=== PATIENT | male | born 1965 | race Caucasian/White ===

== ENCOUNTER 2017-07-15 23:16 | Emergency (ER) | payer SELFPAY ==
[~2017-07-15] VITALS: Ht 177.8 cm; Wt 108.9 kg
[~2017-07-15 23:16] MED LIST: ACET325 PO; ALBIPROI; ALBU.083IS; ALBU90OI; ALBU90OI61 INH; Bactrim Ds Tab1 EACH PO; CIPR500 PO; CIPRO500 MG PO; Cipro500 MG PO; Colace100 MG PO; DIPATR PO; DOCU100 PO; ESOM20; Flagyl500 MG PO; HYDMOR4 PO; HYDR1TAB94; IBUP800; Keflex500 MG PO; Naprosyn500 MG PO; Norco 10-325 T1 EACH PO; PROM25 PO; Percocet 5-3251 EACH PO; RXHYDMOR2 PO; TAMS.4ER PO; Zofran8 MG PO
[2017-07-16 00:19] LABS: BASOPHILS ABSOLUTE AUTO 0.04 K/mm3 (0.00-0.23); BASOPHILS PERCENT AUTO 0 % (0-2); EOSINOPHILS ABSOLUTE AUTO 0.11 K/mm3 (0.00-0.68); EOSINOPHILS PERCENT AUTO 1 % (0-6); Hematocrit 47.3 % (37.0-53.0); Hemoglobin 16.2 g/dL (13.5-17.5); IMMATURE GRAN ABSOLUTE AUTO 0.04 K/mm3 (0.00-0.10); IMMATURE GRAN PERCENT AUTO 0 % (0-1); LYMPHOCYTES ABSOLUTE AUTO 0.83 K/mm3 (0.84-5.20); LYMPHOCYTES PERCENT AUTO 9 % (21-46); MONOCYTES ABSOLUTE AUTO 1.33 K/mm3 (0.16-1.47); MONOCYTES PERCENT AUTO 14 % (4-13); Mean Corpuscular HGB Conc 34.2 g/dL (31.5-36.5); Mean Corpuscular Volume 91 fL (80-100); NEUTROPHILS PERCENT AUTO 76 % (41-73); Platelet Count 225 K/mm3 (150-400); RDW Coefficient Variation 12.9 % (11.7-14.2); RDW Standard Deviation 42.7 fL (35.1-46.3); Red Blood Cell Count 5.22 M/mm3 (4.30-5.90); White Blood Cell Count 9.75 K/mm3 (4.00-11.30)
[2017-07-16 00:24] LABS: Influenza A Negative (NEGATIVE); Influenza B Positive (NEGATIVE)
[2017-07-16] MEDS ORDERED: Tamiflu75 MG PO (00:49)
[2017-07-16 01:36] LABS: Alanine Aminotransfer (ALT/SGP 33 U/L (12-78); Albumin, Blood 3.5 g/dL (3.4-5.0); Alk Phos 63 U/L (50-136); Anion Gap 9 mmol/L (6-16); Aspartate Aminotrans (AST/SGOT 22 U/L (12-37); Bilirubin, Total 0.5 mg/dL (0.1-1.0); Blood Urea Nitrogen 9 mg/dL (8-24); CO2, Blood 22 mmol/L (21-32); Calcium, Blood 7.9 mg/dL (8.5-10.1); Chloride, Blood 107 mmol/L (98-108); Creatinine, Blood 0.75 mg/dL (0.60-1.20); Globulin, Blood 3.4 g/dL (2.2-4.0); Glomerular Filtration Rate >60 (60-); Glucose, Blood 99 mg/dL (70-99); Potassium, Blood 3.5 mmol/L (3.5-5.5); Sodium, Blood 138 mmol/L (136-145); Total Protein, Blood 6.9 g/dL (6.4-8.2); Troponin I <0.015 ng/mL (0.000-0.040)
[2017-07-16] MEDS ORDERED: Prednisone20 MG PO (01:40)
[2017-07-16] MEDS ORDERED: Ativan1 MG PO (01:40)
== END 2017-07-16 01:57 | disposition home or self-care (01) ==
LOC: ER 23:16
PROVIDERS: Physician Assistant
DX: J10.1 Influenza due to other identified influenza virus with other respiratory manifestations (principal); J45.909 Unspecified asthma, uncomplicated; I10 Essential (primary) hypertension; F17.210 Nicotine dependence, cigarettes, uncomplicated; Z88.5 Allergy status to narcotic agent
CPT/HCPCS: 36415; 71046; 80053; 84484; 85025; 87804; 93005; 93010; 94640; 96361; 96374; 96375; 99284; J1885; J2930; J7030

== ENCOUNTER 2017-12-13 08:21 | Emergency (ER) | payer OTHER ==
[~2017-12-13] VITALS: Ht 175.3 cm; Wt 115.7 kg
[~2017-12-13 08:21] MED LIST changes: +Ativan1 MG PO; +Prednisone20 MG PO; +Tamiflu75 MG PO
[2017-12-13] MEDS ORDERED: Prinivil10 MG PO (08:56)
[2017-12-13 09:20] LABS: BASOPHILS ABSOLUTE AUTO 0.07 K/mm3 (0.00-0.23); BASOPHILS PERCENT AUTO 1 % (0-2); EOSINOPHILS ABSOLUTE AUTO 0.41 K/mm3 (0.00-0.68); EOSINOPHILS PERCENT AUTO 5 % (0-6); Hemoglobin 15.8 g/dL (13.5-17.5); IMMATURE GRAN ABSOLUTE AUTO 0.04 K/mm3 (0.00-0.10); IMMATURE GRAN PERCENT AUTO 0 % (0-1); LYMPHOCYTES ABSOLUTE AUTO 2.15 K/mm3 (0.84-5.20); LYMPHOCYTES PERCENT AUTO 23 % (21-46); MONOCYTES ABSOLUTE AUTO 0.85 K/mm3 (0.16-1.47); MONOCYTES PERCENT AUTO 9 % (4-13); Mean Corpuscular HGB 30.7 pg (26.0-34.0); Mean Corpuscular HGB Conc 33.6 g/dL (31.5-36.5); Mean Corpuscular Volume 91 fL (80-100); Mean Platelet Volume 9.6 fL (9.1-12.4); NEUTROPHILS ABSOLUTE AUTO 5.65 K/mm3 (1.96-9.15); NEUTROPHILS PERCENT AUTO 62 % (41-73); Platelet Count 227 K/mm3 (150-400); RDW Coefficient Variation 12.6 % (11.7-14.2); RDW Standard Deviation 42.5 fL (35.1-46.3); Red Blood Cell Count 5.14 M/mm3 (4.30-5.90); White Blood Cell Count 9.17 K/mm3 (4.00-11.30)
[2017-12-13 09:40] LABS: Alanine Aminotransfer (ALT/SGP 36 U/L (12-78); Albumin, Blood 3.8 g/dL (3.4-5.0); Albumin/Globulin Ratio 1.1 (0.8-1.8); Alk Phos 76 U/L (50-136); Anion Gap 8 mmol/L (6-16); Aspartate Aminotrans (AST/SGOT 18 U/L (12-37); Bilirubin, Total 0.5 mg/dL (0.1-1.0); Blood Urea Nitrogen 12 mg/dL (8-24); Bun/Creatinine Ratio 16.6 (12.0-20.0); CO2, Blood 24 mmol/L (21-32); Calcium, Blood 8.4 mg/dL (8.5-10.1); Chloride, Blood 109 mmol/L (98-108); Creatinine, Blood 0.72 mg/dL (0.60-1.20); Globulin, Blood 3.4 g/dL (2.2-4.0); Glomerular Filtration Rate >60 (60-); Glucose, Blood 104 mg/dL (70-99); Potassium, Blood 4.1 mmol/L (3.5-5.5); Sodium, Blood 141 mmol/L (136-145); Total Protein, Blood 7.2 g/dL (6.4-8.2)
[2017-12-13] MEDS ORDERED: Percocet 10-321 EACH PO (11:20)
== END 2017-12-13 11:55 | disposition home or self-care (01) ==
LOC: ER 08:21
PROVIDERS: Emergency Medicine
DX: K40.90 Unilateral inguinal hernia, without obstruction or gangrene, not specified as recurrent (principal); I10 Essential (primary) hypertension; J45.909 Unspecified asthma, uncomplicated; F17.210 Nicotine dependence, cigarettes, uncomplicated; F17.220 Nicotine dependence, chewing tobacco, uncomplicated; Z88.5 Allergy status to narcotic agent; Z79.899 Other long term (current) drug therapy
CPT/HCPCS: 36415; 74177; 76870; 80053; 81000; 83690; 85025; 96361; 96374; 96375; 96376; 99284-25; J2405; J3010; J7030; Q9967

== ENCOUNTER 2018-04-15 12:54 | Inpatient (IN) | payer OTHER ==
[~2018-04-15] VITALS: Ht 177.8 cm; Wt 111.1 kg
[~2018-04-15 12:54] MED LIST changes: +Percocet 10-321 EACH PO; +Prinivil10 MG PO
[2018-04-15] MEDS ORDERED: LOSA50 PO (13:47)
[2018-04-15 13:50] LABS: BASOPHILS ABSOLUTE AUTO 0.09 K/mm3 (0.00-0.23); BASOPHILS PERCENT AUTO 0 % (0-2); EOSINOPHILS ABSOLUTE AUTO 0.01 K/mm3 (0.00-0.68); EOSINOPHILS PERCENT AUTO 0 % (0-6); Hematocrit 52.3 % (37.0-53.0); Hemoglobin 17.2 g/dL (13.5-17.5); IMMATURE GRAN ABSOLUTE AUTO 0.18 K/mm3 (0.00-0.10); IMMATURE GRAN PERCENT AUTO 1 % (0-1); LYMPHOCYTES ABSOLUTE AUTO 0.58 K/mm3 (0.84-5.20); LYMPHOCYTES PERCENT AUTO 3 % (21-46); MONOCYTES ABSOLUTE AUTO 0.74 K/mm3 (0.16-1.47); MONOCYTES PERCENT AUTO 3 % (4-13); Mean Corpuscular HGB 30.4 pg (26.0-34.0); Mean Corpuscular HGB Conc 32.9 g/dL (31.5-36.5); Mean Corpuscular Volume 92 fL (80-100); Mean Platelet Volume 9.6 fL (9.1-12.4); NEUTROPHILS PERCENT AUTO 93 % (41-73); Platelet Count 236 K/mm3 (150-400); RDW Coefficient Variation 12.5 % (11.7-14.2); RDW Standard Deviation 42.9 fL (35.1-46.3); Red Blood Cell Count 5.66 M/mm3 (4.30-5.90)
[2018-04-15 13:57] LABS: PCO2 Arterial 31.6 mmHg (35-45); PO2 Arterial 58.8 mmHg (80-100); pH Blood Arterial 7.47 (7.35-7.45)
[2018-04-15 14:13] LABS: Alanine Aminotransfer (ALT/SGP 27 U/L (12-78); Albumin, Blood 4.2 g/dL (3.4-5.0); Albumin/Globulin Ratio 0.9 (0.8-1.8); Alk Phos 90 U/L (50-136); Anion Gap 10 mmol/L (6-16); Aspartate Aminotrans (AST/SGOT 10 U/L (12-37); Bilirubin, Total 0.9 mg/dL (0.1-1.0); Blood Urea Nitrogen 11 mg/dL (8-24); Bun/Creatinine Ratio 14.9 (12.0-20.0); CO2, Blood 21 mmol/L (21-32); Calcium, Blood 9.5 mg/dL (8.5-10.1); Chloride, Blood 107 mmol/L (98-108); Creatinine, Blood 0.74 mg/dL (0.60-1.20); Globulin, Blood 4.6 g/dL (2.2-4.0); Glomerular Filtration Rate >60 (60-); Glucose, Blood 131 mg/dL (70-99); Potassium, Blood 3.8 mmol/L (3.5-5.5); Sodium, Blood 138 mmol/L (136-145); Total Protein, Blood 8.8 g/dL (6.4-8.2); Troponin I <0.015 ng/mL (0.000-0.040)
[2018-04-15] MEDS ORDERED: TRELEGY ELLIPT1 EACH INH (14:19)
--- NOTE | 2018-04-15 19:21 | NUR ---
SHIFT SUMMARY: Pt arrived to room PCU 15 from ER via stretcher. Pt A/O x 4. Oriented to room, unit, call light and care rounding. Pt denies questions. VSS. LS diminshed with wheezing throughout. Pt placed on 2L N/C for biox 90% on RA. BIox increased to 93%. BIpap at bedside. Pt states that he thinks he will want to use the Bipap tonight. Report was given to night RN and care tansfered.
[2018-04-15 20:31] LABS: Adenovirus Not Detected (NOT DETECT); Bordetella pertussis Not Detected (NOT DETECT); Chlamydophila pneumoniae Not Detected (NOT DETECT); Coronavirus 229E Not Detected (NOT DETECT); Coronavirus HKU1 Not Detected (NOT DETECT); Coronavirus NL63 Not Detected (NOT DETECT); Coronavirus OC43 Not Detected (NOT DETECT); Human Metapneumovirus Not Detected (NOT DETECT); Influenza A/2009-H1 Not Detected (NOT DETECT); Influenza A/H1 Not Detected (NOT DETECT); Influenza A/H3 Not Detected (NOT DETECT); Influenza B Not Detected (NOT DETECT); Mycoplasma pneumoniae Not Detected (NOT DETECT); Parainfluenza Virus 1 Not Detected (NOT DETECT); Parainfluenza Virus 2 Not Detected (NOT DETECT); Parainfluenza Virus 3 Not Detected (NOT DETECT); Parainfluenza Virus 4 Not Detected (NOT DETECT); Respiratory Syncytial Virus Not Detected (NOT DETECT)
[2018-04-15 21:53] LABS: Human Rhinovirus/Enterovirus Detected (NOT DETECT); Influenza A Not Detected (NOT DETECT)
[2018-04-16 03:53] LABS: Hematocrit 45.9 % (37.0-53.0); Hemoglobin 15.2 g/dL (13.5-17.5); Mean Corpuscular HGB 30.7 pg (26.0-34.0); Mean Corpuscular HGB Conc 33.1 g/dL (31.5-36.5); Mean Corpuscular Volume 93 fL (80-100); Mean Platelet Volume 9.9 fL (9.1-12.4); Platelet Count 200 K/mm3 (150-400); RDW Coefficient Variation 12.8 % (11.7-14.2); RDW Standard Deviation 43.6 fL (35.1-46.3); Red Blood Cell Count 4.95 M/mm3 (4.30-5.90); White Blood Cell Count 21.13 K/mm3 (4.00-11.30)
[2018-04-16 04:09] LABS: Anion Gap 5 mmol/L (6-16); Blood Urea Nitrogen 12 mg/dL (8-24); Bun/Creatinine Ratio 18.2 (12.0-20.0); CO2, Blood 24 mmol/L (21-32); Calcium, Blood 8.4 mg/dL (8.5-10.1); Chloride, Blood 114 mmol/L (98-108); Creatinine, Blood 0.66 mg/dL (0.60-1.20); Glomerular Filtration Rate >60 (60-); Glucose, Blood 154 mg/dL (70-99); Potassium, Blood 4.3 mmol/L (3.5-5.5); Sodium, Blood 143 mmol/L (136-145)
--- NOTE | 2018-04-16 07:34 | NUR ---
SHIFT SUMMARY PATIENT PLEASENT AND COOPERATIVE THROUGHOUT THE NIGHT. PATIENT APPEARED TO ENJOY JOKING AND TALKING WITH STAFF. PATIENT APPEARED TO SLEEP WELL THROUGHOUT THE NIGHT. STAYED THE NIGHT AT THE BEDSIDE. PATIENT MEDICATED FOR PAIN PER EMAR. VITAL SIGNS CHARTED. REPORT GIVEN TO ONCOMING RN.
--- NOTE | 2018-04-16 15:01 | NUR ---
1300 The pt expresses a lot of frustration about several things: His recent poor health has caused him financial and emotional distress. His work in the [employer] requires a lot of walking and he finds himself dyspneic. He is also having pain in his left lower back, which he states is from coughing so much. He is having "heart burn" as well. He is frustrated also with needing to wear the oxygen, but is compliant with Bipap and feels that the bipap really helps him. His SPO2 was 88-90% at rest, with conversation. He tells me that he went into the bathroom for a BM this morning without the oxygen on, and that afterwards he felt really short of breath. He is asking if he can get up and walk around in the hallway today. I suggested keeping the oxygen on while he is up to the bathroom, and taking only short walks around the room, with oxygen on, for today, and gradually increasing his activity tomorrow.
[2018-04-17 04:13] LABS: BASOPHILS ABSOLUTE AUTO 0.04 K/mm3 (0.00-0.23); BASOPHILS PERCENT AUTO 0 % (0-2); Hematocrit 43.9 % (37.0-53.0); Hemoglobin 14.3 g/dL (13.5-17.5); LYMPHOCYTES ABSOLUTE AUTO 1.15 K/mm3 (0.84-5.20); LYMPHOCYTES PERCENT AUTO 5 % (21-46); MONOCYTES ABSOLUTE AUTO 0.92 K/mm3 (0.16-1.47); MONOCYTES PERCENT AUTO 4 % (4-13); Mean Corpuscular HGB 30.3 pg (26.0-34.0); Mean Corpuscular HGB Conc 32.6 g/dL (31.5-36.5); Mean Corpuscular Volume 93 fL (80-100); Mean Platelet Volume 10.3 fL (9.1-12.4); Platelet Count 219 K/mm3 (150-400); RDW Coefficient Variation 12.8 % (11.7-14.2); RDW Standard Deviation 43.8 fL (35.1-46.3); Red Blood Cell Count 4.72 M/mm3 (4.30-5.90); White Blood Cell Count 23.36 K/mm3 (4.00-11.30)
[2018-04-17 04:14] LABS: EOSINOPHILS ABSOLUTE AUTO 0.11 K/mm3 (0.00-0.68); EOSINOPHILS PERCENT AUTO 1 % (0-6); IMMATURE GRAN ABSOLUTE AUTO 0.24 K/mm3 (0.00-0.10); IMMATURE GRAN PERCENT AUTO 1 % (0-1); NEUTROPHILS PERCENT AUTO 90 % (41-73)
[2018-04-17 04:29] LABS: Anion Gap 7 mmol/L (6-16); Blood Urea Nitrogen 18 mg/dL (8-24); Bun/Creatinine Ratio 27.4 (12.0-20.0); CO2, Blood 23 mmol/L (21-32); Calcium, Blood 8.5 mg/dL (8.5-10.1); Chloride, Blood 112 mmol/L (98-108); Creatinine, Blood 0.66 mg/dL (0.60-1.20); Glomerular Filtration Rate >60 (60-); Glucose, Blood 147 mg/dL (70-99); Potassium, Blood 3.9 mmol/L (3.5-5.5); Sodium, Blood 142 mmol/L (136-145)
--- NOTE | 2018-04-17 06:28 | NUR ---
SHIFT SUMMARY PATIENT PLEASENT AND COOPERATIVE THROUGHOUT THE NIGHT. PATIENT APPEARED TO BE ABLE TO SLEEP WELL THROUGHOUT THE SECOND HALF OF THE NIGHT. PATIENT HAS NOT USED THE BIPAP TONIGHT, HE HAS REMAINED ON THE 2L VIA N/C. PATIENT MEDICATED PER EMAR FOR BACK PAIN WHICH PATIENT REPORTS IS "FROM COUGHING SO MUCH." PRESENT AT THE BEDSIDE THROUGHOUT THE NIGHT. VITAL SIGNS CHARTED. WILL CONTINUE TO MONITOR PATIENT AND REPORT TO ONCOMING RN.
--- NOTE | 2018-04-17 15:39 | NUR ---
The pt has been ambulatory at least twice in the hallways today; states that the second time he walked more slowly with physical therapy and was able to tolerate a longer walk, with some breaks in between. He has been doing pursed-lip breathing, he says, also, and leg and arm exercises while at rest in the chair. C/O pain in his left lower back. This morning he declined the lidocaine patche, and also pain medications because he wanted to see if he could do without them. This afternoon he requested both of them after the day's activity. He is attempting to stay out of bed and sit in the chair or walk around as tolerated to also relieve his back pain.
--- NOTE | 2018-04-17 18:32 | NUR ---
The pt has been ambulatory, both in the room and in the hallways two-three times today, mostly without the supplemental oxygen. He is looking much better this evening that he did 24 hours ago, and states that he feels that his breathing is "easier", but that he is not quite ready to go home, and not in any hurry to do so, either. LUngs sound significantly wheezy but the pt states that he has had wheezing all the time, since he was a child, and that it never goes away. Left lower back pain is improved with lidocaine patch and one dose of IV fentanyl today for relief. Cheerful, pleasantly conversant. Good appetite. Blood pressures controlled. Sinus tachycardia mostly in the low 100s.
--- NOTE | 2018-04-17 21:10 | NUR ---
Accepted care of patient at 1930, patient return to room from walk with . SOB O2 sat low 90's. Otherwise in good spirts and no other complaints besides chronic low back pain. See shift assessment in [facility] for full assessment
--- NOTE | 2018-04-18 06:00 | NUR ---
REPORTS HAAVING SLEPT VERY WELL BUT WOKE UP SUDDENLY IN A PAMIC AND REQUESTED BREATHING TX AT ABOUT 0530. RELIEVED BETTER BREATHING EFFORT. LUNGS AUSCULTATED W/ INSP WHEEZE AND COARSENESS T/O ALL LUNG ROJAS. NO AUDIBLE WHEEZES AT THIS TIME. PAIN ISSUES AT BASE LINE. BURNING IV SITE POST SOLUMEDROL GIVEN AND NEW IV SITE TO BE DONE W/ ULTRA SOUND.
--- NOTE | 2018-04-18 06:56 | NUR ---
REPORTED SMITH W/ USUAL CHRONIC BACK PAIN.REQUESTED TYLENOL ONLY. 3/10 SMITH 6/10 BACK PAIN, NON PRODUCTIVE COUGHING
--- NOTE | 2018-04-18 09:58 | NUR ---
The pt states that he woke up early this morning, panicking, and with headache and aches in his "bones" from his hips down to his feet. At this time, he is pleasantly conversant, ambulatory to the bathroom, and states that he has had 2 breathing treatments which helped his breathing, but that the Tylenol has not helped his headache at all. Dr. Marvin here to see the patient.
--- NOTE | 2018-04-18 13:35 | NUR ---
George is c/o ongoing headache, frontal and sides of face. He states that he wonders if he has a sinus infection, and asks if he can have Ibuprofen for relief. Call to Dr. Marvin and new order received for one time dose of ibuprofen.
--- NOTE | 2018-04-18 17:28 | NUR ---
This morning George had significant pain in his back, radiating down both legs, as well as headache. This evening these are resolved. His breathing he states is better, and he was able to ambulate in the hallway pushing the wheelchair with his accompanying him. Spo2 90% at the half-way point during a loop around PCU, and 91% upon returning to the room. He states that as long as he takes his time and rests as needed, he manages the walking fine. Lung sounds remain wheezy, which he says is chronic. Occasional cough.
--- NOTE | 2018-04-18 21:39 | NUR ---
ASSUMED CARE OF PATIENT AT APPROXIMATELY 1900 FROM BENJIE Dillon RN. PATIENT ALERT AND ORIENTED X4. PATIENT WAS SITTING IN RECLINER WATCHING TV AT SHIFT CHANGE; REQUESTED TO GO ON WALK IN HALLWAY; PATIENT AMBULATED WITH PCT MARCO ANTONIO DOWN HALLWAY WITH CONT PULSE OXIMETRY; PATIENT TOLERATED WALK WELL. PATIENT REPORTS BACKACHE DOWN TO A 3; REPORTS THAT HIS WHERE HE "HANGS OUT"; TOLERABLE AT THIS TIME. PATIENT DENIES DIZZINESS, NUMBNESS, TINGLING, LIGHTHEADEDNESS AND NAUSEA. NSR ON TELE; OXYGEN SATURATION ABOVE 90% ON ROOM AIR; 2LPM VIA NC PRN; COUGH NOTED; L/S WHEEZY. IV ABX INFUSING CURRENTLY. PATIENT CURRENTLY RESTING IN BED; CALL LIGHT IN REACH; BED IN LOWEST POSISTION; WILL CONTINUE TO MONITOR AND ASSESS UNTIL END OF SHIFT.
[2018-04-19 03:59] LABS: BASOPHILS ABSOLUTE AUTO 0.19 K/mm3 (0.00-0.23); BASOPHILS PERCENT AUTO 1 % (0-2); EOSINOPHILS PERCENT AUTO 1 % (0-6); Hematocrit 46.7 % (37.0-53.0); Hemoglobin 15.3 g/dL (13.5-17.5); IMMATURE GRAN ABSOLUTE AUTO 1.37 K/mm3 (0.00-0.10); IMMATURE GRAN PERCENT AUTO 6 % (0-1); LYMPHOCYTES ABSOLUTE AUTO 1.36 K/mm3 (0.84-5.20); LYMPHOCYTES PERCENT AUTO 6 % (21-46); MONOCYTES ABSOLUTE AUTO 0.85 K/mm3 (0.16-1.47); MONOCYTES PERCENT AUTO 4 % (4-13); Mean Corpuscular HGB 30.1 pg (26.0-34.0); Mean Corpuscular HGB Conc 32.8 g/dL (31.5-36.5); Mean Corpuscular Volume 92 fL (80-100); NEUTROPHILS ABSOLUTE AUTO 17.67 K/mm3 (1.96-9.15); NEUTROPHILS PERCENT AUTO 82 % (41-73); Platelet Count 242 K/mm3 (150-400); RDW Coefficient Variation 12.6 % (11.7-14.2); RDW Standard Deviation 43.2 fL (35.1-46.3); Red Blood Cell Count 5.08 M/mm3 (4.30-5.90); White Blood Cell Count 21.54 K/mm3 (4.00-11.30)
[2018-04-19 04:17] LABS: Anion Gap 6 mmol/L (6-16); Blood Urea Nitrogen 18 mg/dL (8-24); Bun/Creatinine Ratio 25.9 (12.0-20.0); CO2, Blood 25 mmol/L (21-32); Calcium, Blood 8.1 mg/dL (8.5-10.1); Chloride, Blood 108 mmol/L (98-108); Creatinine, Blood 0.69 mg/dL (0.60-1.20); Glomerular Filtration Rate >60 (60-); Glucose, Blood 138 mg/dL (70-99); Sodium, Blood 139 mmol/L (136-145)
[2018-04-19 04:19] LABS: BAND PERCENT MAN 2 % (0-8); BASOPHILS PERCENT MAN 0 % (0-2); EOSINOPHILS PERCENT MAN 0 % (0-6); LYMPHOCYTES ABSOLUTE MAN 2.36 K/mm3 (0.84-5.20); LYMPHOCYTES PERCENT MAN 11 % (21-46); METAMYELOCYTE ABSOLUTE MAN 0.64 K/mm3 (0.00-0.00); METAMYELOCYTE PERCENT MAN 3 % (0-0); MONOCYTES ABSOLUTE MAN 1.72 K/mm3 (0.16-1.47); MONOCYTES PERCENT MAN 8 % (4-13); MYELOCYTE ABSOLUTE MAN 0.43 K/mm3 (0.00-0.00); MYELOCYTE PERCENT MAN 2 % (0-0); NEUTROPHILS ABSOLUTE MAN 16.37 K/mm3 (1.96-9.15); SEG NEUTROPHILS PERCENT MAN 74 % (41-73); TOTAL CELLS COUNTED 100
--- NOTE | 2018-04-19 06:27 | NUR ---
PATIENT HYPERTENSIVE LAST NIGHT; PRN HYDRALAZINE GIVEN; GOOD RESULTS. PATIENT COMPLAINED OF PAIN; MEDICATED PER EMAR. PATIENT HAS BEEN ASLEEP SINCE APPROXIMATELY 0330; DID NOT SLEEP BEFORE 0330. PATIENT REPORTS HE HAS A HARD TIME GETTING COMFORTABLE. PATIENT USES 2LPM VIA NC PRN; MOST OF NIGHT ON ROOM AIR. WILL CONTINUE TO MONITOR AND ASSESS UNTIL END OF SHIFT.
--- NOTE | 2018-04-19 15:15 | NUR ---
CALLED DR. CESAR TO REVIEW REMOVING BIPAP, CONTINUOUS PULSE OX, TELEMETRY, AND TRANSFER IN-HOUSE TO MEDICAL. NEW ORDERS PROVIDED.
--- NOTE | 2018-04-19 16:57 | NUR ---
NURSING SUMMARY ALERT AND ORIENTED X4. NON-TELE, VSS, HTN AT TIMES, HAS HYDRALAZINE PRN FOR SBP > 180 AND DBP > 100, HAVE NOT GIVEN ANY DURING DAY SHIFT, DISCONTINUED TELEMETRY AND CONTINUOUS PULSE OX TODAY. MEDICAL STATUS, AWAITING ROOM. LUNGS WITH EXPIRATORY WHEEZING THROUGHOUT, 2L O2 NC, LAST USED BIPAP ON 04/17. SATS REMAINING 89-94%, WORKING WITH PT/OT. AMBULATED AROUND THE DEPARTMENT LONG DISTANCES TWICE TODAY. USES BATHROOM INDEPENDENTLY. CARDIAC DIET. SKIN INTACT. C/O CHRONIC BACK PAIN, TAKES PERCOCET 1 TABLET. C/O HEADACHE TODAY, TOOK TYLENOL 1 TABLET. LEFT FOREARM 20G SALINE LOCK.
--- NOTE | 2018-04-20 00:36 | NUR ---
PM NOTE. ASSUMED CARE OF PT APROX 1900. PT IS A&Ox4 PLEASENT AND COOPERATIVE WITH CARE. PT WAS ADMITTED DUR TO COPD EXC. PT IS MUCH IMPROVED POSSIBLE D/C TOMORROW. IND IN THE ROOM AND ON 2 L NC PRN. PT'S HRR IN THE 90'S, BP 164/105, MEDS GIVEN PER EMAR WITH BP RESULT OF 119/92. L/S EXP WHEEZES T/O AND DIM IN THE BASES. BT PRESENT AND HYPERACTIVE, ABD IS SOFT AND NONTENDER TO PALP. CALL LIGHT IN REACH, BED IS LOCKED AND LOW, WILL CONTINUE TO MONITOR.
--- NOTE | 2018-04-20 06:32 | NUR ---
SHFIT SUMMARY. NO ACUTE CHANGES NOTED THIS SHIFT. PT'S BP WAS ELEVATED AT THE START OF THIS SHFIT, PT WAS MEDICATED PER EMAR AND PT'S VS HAVE BEEN STABLE SINCE. PT DENIES ANY CHEST PAIN/PRESSURE OR N/V. PT BECOMES SOB W/ACTIVITY AND ANXIETY. PT HAS BEEN ON RA MOST OF THIS SHIFT WITH STATS >90%. PT ALSO HAD A SHOWER THIS SHIFT WELL. CALL LIGHT IN REACH, BED IS LOCKED AND LOW, WILL CONTINUE TO MONITOR UNTIL REPORT CAN BE GIVEN TO ONCOMING RN.
[2018-04-20] MEDS ORDERED: TUMS PO (09:59)
[2018-04-20] MEDS ORDERED: GUAI600T33 PO (10:00)
[2018-04-20] MEDS ORDERED: PANT20 PO (10:00)
[2018-04-20] MEDS ORDERED: ALBU2.5V5 INH (10:02)
[2018-04-20] MEDS ORDERED: BUDE6HFA INH (10:03)
[2018-04-20] MEDS ORDERED: PRED10 PO (10:04)
--- NOTE | 2018-04-20 10:51 | NUR ---
PROVIDED PT AND HIS WITH DISCHARGE INSTRUCTIONS. REVIEWED DC INSTRUCTIONS IN DETAIL INCLUDING FOLLOW-UP VISIT WITH HIS PCP AND CONSULT WITH DIALYSIS TECHNICIAN. GAVE PT HIS PERSONAL INHALER AND ANSWERED ALL QUESTIONS.
== END 2018-04-20 10:46 | disposition home or self-care (01) | DRG 189 ==
LOC: ER 12:54 → PCU 15:25
PROVIDERS: Internal Medicine; Physician Assistant; ADMIT Internal Medicine
PROC: 5A09457 Assistance with Respiratory Ventilation, 24-96 Consecutive Hours, Continuous Positive Airway Pressure (ICD-10-PCS; principal; 2018-04-15)
DX: J96.01 Acute respiratory failure with hypoxia (principal); R65.11 Systemic inflammatory response syndrome (SIRS) of non-infectious origin with acute organ dysfunction; E87.2 Acidosis; J44.1 Chronic obstructive pulmonary disease with (acute) exacerbation; F17.210 Nicotine dependence, cigarettes, uncomplicated; G47.33 Obstructive sleep apnea (adult) (pediatric); B97.89 Other viral agents as the cause of diseases classified elsewhere; B97.10 Unspecified enterovirus as the cause of diseases classified elsewhere; E66.9 Obesity, unspecified; J06.9 Acute upper respiratory infection, unspecified; G89.4 Chronic pain syndrome; I10 Essential (primary) hypertension; Z79.899 Other long term (current) drug therapy; Z28.20 Immunization not carried out because of patient decision for unspecified reason; Z88.5 Allergy status to narcotic agent
CPT/HCPCS: 36415; 36600; 71046; 80048; 80053; 82803; 83605; 83880; 84484; 85025; 85027; 87040; 87486; 87581; 87633; 87798; 93005; 93010; 94640; 94644; 94660; 94760; 94762; 96365; 96367; 96375; 97116; 97161; 97165; 97530; 97535; 99285-25; C9113; G8978; G8979; G8987; G8988; J0360; J0456; J0696; J1650; J1956; J2060; J2405; J2920; J2930; J3010; J7030; J7050

== ENCOUNTER 2018-07-18 09:44 | Emergency (ER) | payer OTHER ==
[~2018-07-18] VITALS: Ht 154.9 cm; Wt 115.7 kg
[~2018-07-18 09:44] MED LIST changes: +ALBU2.5V5 INH; +BUDE6HFA INH; +GUAI600T33 PO; +LOSA50 PO; +PANT20 PO; +PRED10 PO; +TRELEGY ELLIPT1 EACH INH; +TUMS PO
[2018-07-18] MEDS ORDERED: TRELEGY ELLIPT1 EACH INH (09:57)
[2018-07-18] MEDS ORDERED: Augmentin 875-1 EACH PO (10:52)
[2018-07-18] MEDS ORDERED: Flonase 0.05% N16 GM (10:53)
== END 2018-07-18 11:03 | disposition home or self-care (01) ==
LOC: ER 09:44
DX: J01.90 Acute sinusitis, unspecified (principal); J32.9 Chronic sinusitis, unspecified; Z88.5 Allergy status to narcotic agent; Z79.899 Other long term (current) drug therapy; I10 Essential (primary) hypertension; J45.909 Unspecified asthma, uncomplicated; F17.200 Nicotine dependence, unspecified, uncomplicated
CPT/HCPCS: 70450; 99284-25

== ENCOUNTER 2018-08-14 08:33 | Emergency (ER) | payer OTHER ==
[~2018-08-14] VITALS: Ht 177.8 cm; Wt 117.9 kg
[~2018-08-14 08:33] MED LIST changes: +Augmentin 875-1 EACH PO; +Flonase 0.05% N16 GM
[2018-08-14] MEDS ORDERED: LOSARTAN POTAS100 MG PO (09:47)
[2018-08-14 09:48] LABS: Source, Urine Clean Catch
[2018-08-14] MEDS ORDERED: ALBU90OI6 INH (09:48)
[2018-08-14] MEDS ORDERED: ALLEGRA ALLERG180 MG PO (09:49)
[2018-08-14 09:51] LABS: Bilirubin, Urine Neg (Neg); Blood, Urine 2+ (Neg); Glucose Qualitative, Urine Neg (Neg); Ketones, Urine Neg (Neg); Leukocyte Esterase, Urine Neg (Neg); Nitrite, Urine Neg (Neg); Protein, Urine Neg (Neg); Specific Gravity, Urine 1.015 (1.003-1.022); Urobilinogen, Urine NORM (Normal)
[2018-08-14 10:05] LABS: Appearance, Urine Clear (Clear); Bacteria Not Seen /hpf; Color, Urine Yellow (P-Yellow); Red Blood Cells, Urine 0-2 /hpf (0-2); Squamous Epithelial Cells Rare /hpf (Few); White Blood Cells, Urine Not Seen /hpf (0-5)
[2018-08-14 10:10] LABS: BASOPHILS ABSOLUTE AUTO 0.08 K/mm3 (0.00-0.23); BASOPHILS PERCENT AUTO 1 % (0-2); EOSINOPHILS ABSOLUTE AUTO 0.14 K/mm3 (0.00-0.68); EOSINOPHILS PERCENT AUTO 1 % (0-6); Hematocrit 48.3 % (37.0-53.0); Hemoglobin 15.9 g/dL (13.5-17.5); IMMATURE GRAN ABSOLUTE AUTO 0.05 K/mm3 (0.00-0.10); IMMATURE GRAN PERCENT AUTO 1 % (0-1); LYMPHOCYTES ABSOLUTE AUTO 1.71 K/mm3 (0.84-5.20); LYMPHOCYTES PERCENT AUTO 16 % (21-46); MONOCYTES ABSOLUTE AUTO 0.91 K/mm3 (0.16-1.47); MONOCYTES PERCENT AUTO 8 % (4-13); Mean Corpuscular HGB 30.3 pg (26.0-34.0); Mean Corpuscular HGB Conc 32.9 g/dL (31.5-36.5); Mean Corpuscular Volume 92 fL (80-100); NEUTROPHILS ABSOLUTE AUTO 8.04 K/mm3 (1.96-9.15); NEUTROPHILS PERCENT AUTO 74 % (41-73); Platelet Count 228 K/mm3 (150-400); RDW Coefficient Variation 12.4 % (11.7-14.2); RDW Standard Deviation 41.9 fL (35.1-46.3); Red Blood Cell Count 5.24 M/mm3 (4.30-5.90); White Blood Cell Count 10.93 K/mm3 (4.00-11.30)
[2018-08-14 10:33] LABS: Alanine Aminotransfer (ALT/SGP 31 U/L (12-78); Albumin, Blood 3.9 g/dL (3.4-5.0); Albumin/Globulin Ratio 1.3 (0.8-1.8); Alk Phos 84 U/L (50-136); Anion Gap 5 mmol/L (6-16); Aspartate Aminotrans (AST/SGOT 12 U/L (12-37); Bilirubin, Total 0.5 mg/dL (0.1-1.0); Blood Urea Nitrogen 10 mg/dL (8-24); Bun/Creatinine Ratio 13.3 (12.0-20.0); CO2, Blood 27 mmol/L (21-32); Calcium, Blood 8.7 mg/dL (8.5-10.1); Chloride, Blood 109 mmol/L (98-108); Creatinine, Blood 0.75 mg/dL (0.60-1.20); Globulin, Blood 3.1 g/dL (2.2-4.0); Glomerular Filtration Rate >60 (60-); Glucose, Blood 98 mg/dL (70-99); Potassium, Blood 3.9 mmol/L (3.5-5.5); Sodium, Blood 141 mmol/L (136-145)
[2018-08-14] MEDS ORDERED: ONDA4ODT MM (12:33)
[2018-08-14] MEDS ORDERED: Percocet 5-3251 EACH PO (12:33)
== END 2018-08-14 13:18 | disposition home or self-care (01) ==
LOC: ER 08:33
PROVIDERS: Emergency Medicine
DX: K52.9 Noninfective gastroenteritis and colitis, unspecified (principal); Z88.5 Allergy status to narcotic agent; Z79.899 Other long term (current) drug therapy; I10 Essential (primary) hypertension; J45.909 Unspecified asthma, uncomplicated; F17.200 Nicotine dependence, unspecified, uncomplicated
CPT/HCPCS: 36415; 74176; 80053; 81001; 83690; 84484; 85025; 93005; 93010; 96361; 96374; 96375; 99284-25; J2405; J3010; J7030

== ENCOUNTER → 2018-08-17 | Outpatient (CLI) | payer OTHER ==
[~2018-08-17] MED LIST changes: +ALBU90OI6 INH; +ALLEGRA ALLERG180 MG PO; +LOSARTAN POTAS100 MG PO; +ONDA4ODT MM
== END | disposition home or self-care (01) ==
LOC: LAB SHORT 12:42 → LAB 12:42
DX: R31.9 Hematuria, unspecified (principal)
CPT/HCPCS: 87493

== ENCOUNTER 2019-05-07 07:24 | Day surgery (SDC) | payer OTHER ==
[~2019-05-07] VITALS: Ht 177.8 cm; Wt 111.0 kg
[2019-05-07] MEDS ORDERED: ALBU90OI INH (07:58)
--- NOTE | 2019-05-07 08:13 | NUR ---
PT ADMITTED FOR COLONOSCOPY. PREP COMPLETED. VERIFIED NPO STATUS. NEB GIVEN PER ORDERS. IV STARTED. PT HAS NO C/O PAIN OR DISCOMFORT OTHER THAN A "LITTLE HEACACHE" WHICH STARTED YESTERDAY.
--- NOTE | 2019-05-07 08:26 | NUR ---
VERIFIED RIDE HOME.
--- NOTE | 2019-05-07 08:34 | NUR ---
PT HAVING UNCOMPLICATED POST PROCEDURE COURSE. TOLERATING PO FLUIDS WITHOUT DIFFICULTY. AT BEDSIDE. REVIEWED DISCHARGE INSTRUCTIONS WITH PATIENT WHO VERBALIZES UNDERSTANDING OF ALL INSTRUCTIONS GIVEN.
--- NOTE | 2019-05-07 08:39 | NUR ---
05/07/19 0839 Manny Gibbs History, Chart, Medications and Allergies reviewed before start of procedure.MONITOR INTACT WITH CONTINUOUS PULSE OXIMETRY AND INTERMITTENT BP.3-LEAD EKG REVIEWED WITH PHYSICIAN PRIOR TO START OF PROCEDURE.O2 VIA N/C INTACT THROUGHOUT SEDATION/PROCEDURE. Patient confirms NPO status and agrees with scheduled surgery.PATIENT DETERMINED TO BE ASA APPROPRIATE FOR PROPOFOL SEDATION PRIOR TO START OF PROCEDURE BY DR. BROWNLEE.
--- NOTE | 2019-05-07 09:14 | NUR ---
PT RETURNED FROM PROCEDURE AWAKE, CONVERSING WITH STAFF. MD TO BEDSIDE TO REVIEW FINDINGS. PT C/O GAS PAIN IN ABDOMEN DESCRIBES "SHARP/STINGING" PAIN. AT BEDSIDE.
--- NOTE | 2019-05-07 09:26 | NUR ---
ADVANCE DIRECTIVE PACKET GIVEN PER PATIENT REQUEST. EDUCATED ON PROCESS.
--- NOTE | 2019-05-07 09:37 | NUR ---
REVIEWED DC INSTRUCTIONS WITH PATIENT AND , BOTH OF WHOM VERBALIZE UNDERSTANDING OF ALL. IV WAS ALREADY DC'D BY PATIENT DURING PROCEDURE. TIP INTACT PER REPORT. PT HELPING HIM DRESS. TOLERATING PO FLUIDS WITHOUT DIFFICULTY.
--- NOTE | 2019-05-07 09:40 | NUR ---
DC HOME VIA WC - PT STEADY ON FEET.
== END 2019-05-07 22:41 | disposition home or self-care (01) ==
LOC: ORSCMMR 07:24 → ORD 08:30 → ORSCMMR 08:30
PROVIDERS: Internal Medicine Gastroenterology
PROC: 0DBM8ZX Excision of Descending Colon, Via Natural or Artificial Opening Endoscopic, Diagnostic (ICD-10-PCS; principal; 2019-05-07 08:30)
PROC: 0DBL8ZX Excision of Transverse Colon, Via Natural or Artificial Opening Endoscopic, Diagnostic (ICD-10-PCS; principal; 2019-05-07 08:30)
DX: Z12.11 Encounter for screening for malignant neoplasm of colon (principal); D12.3 Benign neoplasm of transverse colon; D12.4 Benign neoplasm of descending colon; J44.9 Chronic obstructive pulmonary disease, unspecified; I10 Essential (primary) hypertension; F17.210 Nicotine dependence, cigarettes, uncomplicated; Z79.899 Other long term (current) drug therapy
CPT/HCPCS: 88305; J2250; J2704; J7120

== ENCOUNTER 2020-09-17 06:11 | Emergency (ER) | payer OTHER ==
[~2020-09-17] VITALS: Ht 177.8 cm; Wt 113.4 kg
[~2020-09-17 06:11] MED LIST changes: +ALBU90OI INH; +LOSA25 PO; -LOSARTAN POTAS100 MG PO
== END 2020-09-17 08:40 | disposition home or self-care (01) ==
LOC: ER 06:11
DX: R51.9 Headache, unspecified (principal); I10 Essential (primary) hypertension; Z20.822 Contact with and (suspected) exposure to COVID-19; Z88.5 Allergy status to narcotic agent; Z79.899 Other long term (current) drug therapy
CPT/HCPCS: 96374; 96375; 99283-25; J0780; J1200; J1885; J7030

== ENCOUNTER 2020-12-09 08:21 | Emergency (ER) | payer OTHER ==
[~2020-12-09] VITALS: Ht 177.8 cm; Wt 108.9 kg
[2020-12-09 10:35] LABS: BASOPHILS ABSOLUTE AUTO 0.09 K/mm3 (0.00-0.23); BASOPHILS PERCENT AUTO 1 % (0-2); EOSINOPHILS ABSOLUTE AUTO 0.25 K/mm3 (0.00-0.68); EOSINOPHILS PERCENT AUTO 2 % (0-6); Hematocrit 53.7 % (37.0-53.0); Hemoglobin 18.2 g/dL (13.5-17.5); IMMATURE GRAN ABSOLUTE AUTO 0.06 K/mm3 (0.00-0.10); IMMATURE GRAN PERCENT AUTO 1 % (0-1); LYMPHOCYTES ABSOLUTE AUTO 2.13 K/mm3 (0.84-5.20); LYMPHOCYTES PERCENT AUTO 17 % (21-46); MONOCYTES ABSOLUTE AUTO 0.95 K/mm3 (0.16-1.47); MONOCYTES PERCENT AUTO 8 % (4-13); Mean Corpuscular HGB 30.3 pg (26.0-34.0); Mean Corpuscular HGB Conc 33.9 g/dL (31.5-36.5); Mean Corpuscular Volume 89 fL (80-100); Mean Platelet Volume 9.4 fL (9.1-12.4); NEUTROPHILS ABSOLUTE AUTO 8.74 K/mm3 (1.96-9.15); NEUTROPHILS PERCENT AUTO 72 % (41-73); Platelet Count 257 K/mm3 (150-400); RDW Coefficient Variation 12.8 % (11.7-14.2); RDW Standard Deviation 41.9 fL (35.1-46.3); Red Blood Cell Count 6.01 M/mm3 (4.30-5.90); White Blood Cell Count 12.22 K/mm3 (4.00-11.30)
[2020-12-09 11:01] LABS: Chloride, Blood 107 mmol/L (98-108); Potassium, Blood 3.8 mmol/L (3.5-5.5); Sodium, Blood 139 mmol/L (136-145)
[2020-12-09 11:02] LABS: Alanine Aminotransfer (ALT/SGP 44 U/L (12-78); Albumin, Blood 3.9 g/dL (3.4-5.0); Albumin/Globulin Ratio 1.1 (0.8-1.8); Alk Phos 87 U/L (50-136); Anion Gap 9 mmol/L (6-16); Aspartate Aminotrans (AST/SGOT 19 U/L (12-37); Bilirubin, Total 0.7 mg/dL (0.1-1.0); Blood Urea Nitrogen 13 mg/dL (8-24); Bun/Creatinine Ratio 15.2 (12.0-20.0); CO2, Blood 23 mmol/L (21-32); Calcium, Blood 9.3 mg/dL (8.5-10.1); Creatinine, Blood 0.85 mg/dL (0.60-1.20); Globulin, Blood 3.7 g/dL (2.2-4.0); Glomerular Filtration Rate >60 (60-); Glucose, Blood 100 mg/dL (70-99); Total Protein, Blood 7.6 g/dL (6.4-8.2)
[2020-12-09] MEDS ORDERED: Prednisone20 MG PO (12:33)
== END 2020-12-09 13:10 | disposition home or self-care (01) ==
LOC: ER 08:21
PROVIDERS: Physician Assistant
DX: J45.901 Unspecified asthma with (acute) exacerbation (principal); Z20.822 Contact with and (suspected) exposure to COVID-19; F17.210 Nicotine dependence, cigarettes, uncomplicated; F17.220 Nicotine dependence, chewing tobacco, uncomplicated; J44.9 Chronic obstructive pulmonary disease, unspecified; I10 Essential (primary) hypertension; Z88.5 Allergy status to narcotic agent
CPT/HCPCS: 71046; 80053; 85025; 96374; 96375; 99284-25; J1885; J2765

== ENCOUNTER → 2021-01-13 | Outpatient (CLI) | payer OTHER ==
[2021-01-13 13:25] LABS: BASOPHILS ABSOLUTE AUTO 0.15 K/mm3 (0.00-0.23); BASOPHILS PERCENT AUTO 1 % (0-2); EOSINOPHILS ABSOLUTE AUTO 0.47 K/mm3 (0.00-0.68); EOSINOPHILS PERCENT AUTO 4 % (0-6); Hematocrit 51.5 % (37.0-53.0); Hemoglobin 17.1 g/dL (13.5-17.5); IMMATURE GRAN ABSOLUTE AUTO 0.14 K/mm3 (0.00-0.10); IMMATURE GRAN PERCENT AUTO 1 % (0-1); LYMPHOCYTES ABSOLUTE AUTO 2.59 K/mm3 (0.84-5.20); LYMPHOCYTES PERCENT AUTO 20 % (21-46); MONOCYTES ABSOLUTE AUTO 1.12 K/mm3 (0.16-1.47); MONOCYTES PERCENT AUTO 8 % (4-13); Mean Corpuscular HGB 30.1 pg (26.0-34.0); Mean Corpuscular HGB Conc 33.2 g/dL (31.5-36.5); Mean Corpuscular Volume 91 fL (80-100); Mean Platelet Volume 9.9 fL (9.1-12.4); NEUTROPHILS ABSOLUTE AUTO 8.83 K/mm3 (1.96-9.15); NEUTROPHILS PERCENT AUTO 66 % (41-73); Platelet Count 243 K/mm3 (150-400); RDW Coefficient Variation 13.5 % (11.7-14.2); RDW Standard Deviation 45.1 fL (35.1-46.3); Red Blood Cell Count 5.68 M/mm3 (4.30-5.90)
[2021-01-13 14:09] LABS: Alanine Aminotransfer (ALT/SGP 31 U/L (12-78); Albumin, Blood 3.5 g/dL (3.4-5.0); Alk Phos 93 U/L (50-136); Anion Gap 5 mmol/L (6-16); Aspartate Aminotrans (AST/SGOT 16 U/L (12-37); Bilirubin, Total 0.4 mg/dL (0.1-1.0); Blood Urea Nitrogen 10 mg/dL (8-24); Bun/Creatinine Ratio 12.6 (12.0-20.0); CO2, Blood 28 mmol/L (21-32); Calcium, Blood 9.2 mg/dL (8.5-10.1); Chloride, Blood 108 mmol/L (98-108); Creatinine, Blood 0.79 mg/dL (0.60-1.20); Globulin, Blood 3.6 g/dL (2.2-4.0); Glomerular Filtration Rate >60 (60-); Glucose, Blood 113 mg/dL (70-99); Potassium, Blood 4.1 mmol/L (3.5-5.5); Sodium, Blood 141 mmol/L (136-145); Total Protein, Blood 7.1 g/dL (6.4-8.2)
== END | disposition home or self-care (01) ==
LOC: LAB SHORT 10:15 → LAB 10:15
PROVIDERS: Family Medicine
DX: I10 Essential (primary) hypertension (principal)
CPT/HCPCS: 80053; 84443; 85025

== ENCOUNTER 2021-03-17 09:15 | Emergency (ER) | payer OTHER ==
[~2021-03-17] VITALS: Ht 177.8 cm; Wt 111.1 kg
[2021-03-17 11:01] LABS: BASOPHILS ABSOLUTE AUTO 0.09 K/mm3 (0.00-0.23); BASOPHILS PERCENT AUTO 1 % (0-2); EOSINOPHILS PERCENT AUTO 2 % (0-6); Hematocrit 53.9 % (37.0-53.0); IMMATURE GRAN ABSOLUTE AUTO 0.08 K/mm3 (0.00-0.10); IMMATURE GRAN PERCENT AUTO 1 % (0-1); LYMPHOCYTES ABSOLUTE AUTO 2.35 K/mm3 (0.84-5.20); LYMPHOCYTES PERCENT AUTO 16 % (21-46); MONOCYTES ABSOLUTE AUTO 1.13 K/mm3 (0.16-1.47); MONOCYTES PERCENT AUTO 8 % (4-13); Mean Corpuscular HGB 30.1 pg (26.0-34.0); Mean Corpuscular HGB Conc 33.4 g/dL (31.5-36.5); Mean Corpuscular Volume 90 fL (80-100); Mean Platelet Volume 9.6 fL (9.1-12.4); NEUTROPHILS ABSOLUTE AUTO 10.63 K/mm3 (1.96-9.15); NEUTROPHILS PERCENT AUTO 73 % (41-73); Platelet Count 313 K/mm3 (150-400); RDW Coefficient Variation 12.6 % (11.7-14.2); RDW Standard Deviation 41.9 fL (35.1-46.3); Red Blood Cell Count 5.99 M/mm3 (4.30-5.90); White Blood Cell Count 14.58 K/mm3 (4.00-11.30)
[2021-03-17 11:25] LABS: Alanine Aminotransfer (ALT/SGP 35 U/L (12-78); Albumin, Blood 4.1 g/dL (3.4-5.0); Albumin/Globulin Ratio 1.1 (0.8-1.8); Alk Phos 85 U/L (50-136); Anion Gap 11 mmol/L (6-16); Aspartate Aminotrans (AST/SGOT 15 U/L (12-37); Bilirubin, Total 0.7 mg/dL (0.1-1.0); Blood Urea Nitrogen 13 mg/dL (8-24); Bun/Creatinine Ratio 15.3 (12.0-20.0); CO2, Blood 22 mmol/L (21-32); Calcium, Blood 9.9 mg/dL (8.5-10.1); Chloride, Blood 107 mmol/L (98-108); Creatinine, Blood 0.85 mg/dL (0.60-1.20); Globulin, Blood 3.8 g/dL (2.2-4.0); Glomerular Filtration Rate >60 (60-); Glucose, Blood 110 mg/dL (70-99); Potassium, Blood 4.1 mmol/L (3.5-5.5); Sodium, Blood 140 mmol/L (136-145); Total Protein, Blood 7.9 g/dL (6.4-8.2)
[2021-03-17 12:13] LABS: Source, Urine Clean Catch
[2021-03-17 12:17] LABS: Appearance, Urine Hazy (Clear); Bilirubin, Urine Neg (Neg); Blood, Urine 3+ (Neg); Color, Urine Yellow (P-Yellow); Glucose Qualitative, Urine Neg (Neg); Ketones, Urine Neg (Neg); Leukocyte Esterase, Urine 1+ (Neg); Nitrite, Urine Neg (Neg); Protein, Urine 1+ (Neg); Specific Gravity, Urine 1.025 (1.003-1.022); Urobilinogen, Urine NORM (Normal)
[2021-03-17 12:40] LABS: Squamous Epithelial Cells Many /hpf (Few)
[2021-03-17 12:41] LABS: Bacteria Few /hpf; Granular Casts 0-2 /lpf (0); Hyaline Casts 0-2 /lpf (0-2); Mucus Heavy (0-Heavy)
[2021-03-17] MEDS ORDERED: ONDA4ODT MM (16:04)
[2021-03-17] MEDS ORDERED: CEFU500T30 PO (16:04)
== END 2021-03-17 16:35 | disposition home or self-care (01) ==
LOC: ER 09:15
PROVIDERS: Emergency Medicine
DX: N30.90 Cystitis, unspecified without hematuria (principal); R11.2 Nausea with vomiting, unspecified; Z88.5 Allergy status to narcotic agent; Z79.899 Other long term (current) drug therapy; J44.9 Chronic obstructive pulmonary disease, unspecified; I10 Essential (primary) hypertension; Z87.891 Personal history of nicotine dependence
CPT/HCPCS: 36415; 74177; 80053; 81001; 83690; 85025; 87086; 93005; 93010; 96365; 96375; 99284-25; J0696; J1885; J2405; J7030; Q9967

== ENCOUNTER 2021-06-04 06:27 | Emergency (ER) | payer OTHER ==
[~2021-06-04] VITALS: Ht 177.8 cm; Wt 113.4 kg
[~2021-06-04 06:27] MED LIST changes: +CEFU500T30 PO
[2021-06-04 07:54] LABS: BASOPHILS ABSOLUTE AUTO 0.08 K/mm3 (0.00-0.23); BASOPHILS PERCENT AUTO 1 % (0-2); EOSINOPHILS ABSOLUTE AUTO 0.29 K/mm3 (0.00-0.68); EOSINOPHILS PERCENT AUTO 2 % (0-6); Hematocrit 46.9 % (37.0-53.0); Hemoglobin 15.8 g/dL (13.5-17.5); IMMATURE GRAN ABSOLUTE AUTO 0.07 K/mm3 (0.00-0.10); IMMATURE GRAN PERCENT AUTO 1 % (0-1); LYMPHOCYTES ABSOLUTE AUTO 1.83 K/mm3 (0.84-5.20); LYMPHOCYTES PERCENT AUTO 15 % (21-46); MONOCYTES ABSOLUTE AUTO 0.85 K/mm3 (0.16-1.47); MONOCYTES PERCENT AUTO 7 % (4-13); Mean Corpuscular HGB 30.4 pg (26.0-34.0); Mean Corpuscular HGB Conc 33.7 g/dL (31.5-36.5); Mean Corpuscular Volume 90 fL (80-100); Mean Platelet Volume 9.8 fL (9.1-12.4); NEUTROPHILS ABSOLUTE AUTO 9.42 K/mm3 (1.96-9.15); NEUTROPHILS PERCENT AUTO 75 % (41-73); Platelet Count 248 K/mm3 (150-400); RDW Coefficient Variation 13.2 % (11.7-14.2); RDW Standard Deviation 43.6 fL (35.1-46.3); Red Blood Cell Count 5.19 M/mm3 (4.30-5.90); White Blood Cell Count 12.54 K/mm3 (4.00-11.30)
[2021-06-04 08:18] LABS: Alanine Aminotransfer (ALT/SGP 28 U/L (12-78); Albumin, Blood 3.8 g/dL (3.4-5.0); Albumin/Globulin Ratio 1.2 (0.8-1.8); Alk Phos 81 U/L (50-136); Anion Gap 6 mmol/L (6-16); Aspartate Aminotrans (AST/SGOT 10 U/L (12-37); Bilirubin, Total 0.5 mg/dL (0.1-1.0); Blood Urea Nitrogen 13 mg/dL (8-24); Bun/Creatinine Ratio 18.2 (12.0-20.0); CO2, Blood 23 mmol/L (21-32); Calcium, Blood 8.9 mg/dL (8.5-10.1); Chloride, Blood 109 mmol/L (98-108); Creatinine, Blood 0.72 mg/dL (0.60-1.20); Globulin, Blood 3.1 g/dL (2.2-4.0); Glomerular Filtration Rate >60 (60-); Glucose, Blood 125 mg/dL (70-99); Sodium, Blood 138 mmol/L (136-145); Total Protein, Blood 6.9 g/dL (6.4-8.2)
[2021-06-04 09:23] LABS: Source, Urine Clean Catch
[2021-06-04 09:40] LABS: Appearance, Urine Clear (Clear); Bilirubin, Urine Neg (Neg); Blood, Urine 1+ (Neg); Color, Urine Yellow (P-Yellow); Glucose Qualitative, Urine Neg (Neg); Ketones, Urine Neg (Neg); Leukocyte Esterase, Urine Neg (Neg); Nitrite, Urine Neg (Neg); Protein, Urine Neg (Neg); Specific Gravity, Urine 1.015 (1.003-1.022); Urobilinogen, Urine NORM (Normal)
[2021-06-04 09:51] LABS: Bacteria Not Seen /hpf; Red Blood Cells, Urine 0-2 /hpf (0-2); Squamous Epithelial Cells Rare /hpf (Few); White Blood Cells, Urine 0-2 /hpf (0-5)
== END 2021-06-04 11:09 | disposition home or self-care (01) ==
LOC: ER 06:27
PROVIDERS: Emergency Medicine
DX: R10.31 Right lower quadrant pain (principal); R10.84 Generalized abdominal pain; J45.909 Unspecified asthma, uncomplicated; I10 Essential (primary) hypertension; F17.210 Nicotine dependence, cigarettes, uncomplicated
CPT/HCPCS: 36415; 74177; 80053; 81001; 83690; 85025; 96374-59; 96375; 99284-25; J1170; J2405; J7030; Q9967

== ENCOUNTER 2021-08-06 14:15 | Emergency (ER) | payer OTHER ==
[~2021-08-06] VITALS: Ht 177.8 cm; Wt 113.4 kg
[2021-08-06 15:31] LABS: BASOPHILS ABSOLUTE AUTO 0.09 K/mm3 (0.00-0.23); BASOPHILS PERCENT AUTO 1 % (0-2); EOSINOPHILS ABSOLUTE AUTO 0.34 K/mm3 (0.00-0.68); EOSINOPHILS PERCENT AUTO 2 % (0-6); Hematocrit 48.5 % (37.0-53.0); Hemoglobin 16.2 g/dL (13.5-17.5); IMMATURE GRAN ABSOLUTE AUTO 0.05 K/mm3 (0.00-0.10); IMMATURE GRAN PERCENT AUTO 0 % (0-1); LYMPHOCYTES ABSOLUTE AUTO 2.41 K/mm3 (0.84-5.20); LYMPHOCYTES PERCENT AUTO 17 % (21-46); MONOCYTES ABSOLUTE AUTO 1.17 K/mm3 (0.16-1.47); MONOCYTES PERCENT AUTO 8 % (4-13); Mean Corpuscular HGB 30.7 pg (26.0-34.0); Mean Corpuscular HGB Conc 33.4 g/dL (31.5-36.5); Mean Corpuscular Volume 92 fL (80-100); Mean Platelet Volume 9.9 fL (9.1-12.4); NEUTROPHILS ABSOLUTE AUTO 9.83 K/mm3 (1.96-9.15); NEUTROPHILS PERCENT AUTO 71 % (41-73); Platelet Count 275 K/mm3 (150-400); RDW Coefficient Variation 12.6 % (11.7-14.2); RDW Standard Deviation 42.8 fL (35.1-46.3); Red Blood Cell Count 5.28 M/mm3 (4.30-5.90); White Blood Cell Count 13.89 K/mm3 (4.00-11.30)
[2021-08-06 15:33] LABS: Alanine Aminotransfer (ALT/SGP 26 U/L (12-78); Albumin, Blood 3.8 g/dL (3.4-5.0); Albumin/Globulin Ratio 1.1 (0.8-1.8); Alk Phos 80 U/L (50-136); Anion Gap 7 mmol/L (6-16); Aspartate Aminotrans (AST/SGOT 13 U/L (12-37); Bilirubin, Total 0.7 mg/dL (0.1-1.0); Blood Urea Nitrogen 12 mg/dL (8-24); Bun/Creatinine Ratio 16.5 (12.0-20.0); CO2, Blood 26 mmol/L (21-32); Calcium, Blood 9.5 mg/dL (8.5-10.1); Chloride, Blood 107 mmol/L (98-108); Creatinine, Blood 0.73 mg/dL (0.60-1.20); Globulin, Blood 3.6 g/dL (2.2-4.0); Glomerular Filtration Rate >60 (60-); Glucose, Blood 107 mg/dL (70-99); Potassium, Blood 3.5 mmol/L (3.5-5.5); Sodium, Blood 140 mmol/L (136-145); Total Protein, Blood 7.4 g/dL (6.4-8.2)
[2021-08-06] MEDS ORDERED: GABA300 PO (19:24)
[2021-08-06] MEDS ORDERED: IBUP800 PO (19:24)
[2021-08-06] MEDS ORDERED: OXAYDO5 M1 PO (19:24)
[2021-08-06] MEDS ORDERED: Acetaminophen500 MG PO (19:24)
[2021-08-06] MEDS ORDERED: Robaxin750 MG PO (19:24)
== END 2021-08-06 19:57 | disposition home or self-care (01) ==
LOC: ER 14:15
PROVIDERS: Physician Assistant
DX: M54.12 Radiculopathy, cervical region (principal); I10 Essential (primary) hypertension; F17.210 Nicotine dependence, cigarettes, uncomplicated; Z88.8 Allergy status to other drugs, medicaments and biological substances
CPT/HCPCS: 36415; 70496; 70498; 80053; 85025; 86140; 96374-59; 96375-59; 99284-25; A9270; J1170; J1885; Q9967

== ENCOUNTER 2022-03-26 23:14 | Emergency (ER) | payer OTHER ==
[~2022-03-26] VITALS: Ht 177.8 cm; Wt 104.3 kg
[~2022-03-26 23:14] MED LIST changes: +Acetaminophen500 MG PO; +GABA300 PO; +IBUP800 PO; +OXAYDO5 M1 PO; +Robaxin750 MG PO
[2022-03-27 04:25] LABS: Influenza A, PCR POSITIVE (NEGATIVE); Influenza B, PCR NEGATIVE (NEGATIVE); Resp Syncytial Virus, PCR NEGATIVE (NEGATIVE); SARS-Cov-2 (COVID-19) PCR, MMC NEGATIVE (NEGATIVE)
[2022-03-27 04:44] LABS: BASOPHILS ABSOLUTE AUTO 0.07 K/mm3 (0.00-0.23); BASOPHILS PERCENT AUTO 1 % (0-2); EOSINOPHILS ABSOLUTE AUTO 0.09 K/mm3 (0.00-0.68); EOSINOPHILS PERCENT AUTO 1 % (0-6); Hematocrit 50.4 % (37.0-53.0); Hemoglobin 17.4 g/dL (13.5-17.5); IMMATURE GRAN PERCENT AUTO 1 % (0-1); LYMPHOCYTES ABSOLUTE AUTO 1.57 K/mm3 (0.84-5.20); LYMPHOCYTES PERCENT AUTO 20 % (21-46); MONOCYTES ABSOLUTE AUTO 1.65 K/mm3 (0.16-1.47); MONOCYTES PERCENT AUTO 21 % (4-13); Mean Corpuscular HGB 30.3 pg (26.0-34.0); Mean Corpuscular HGB Conc 34.5 g/dL (31.5-36.5); Mean Corpuscular Volume 88 fL (80-100); Mean Platelet Volume 9.9 fL (9.1-12.4); NEUTROPHILS PERCENT AUTO 56 % (41-73); Platelet Count 214 K/mm3 (150-400); RDW Coefficient Variation 12.5 % (11.7-14.2); RDW Standard Deviation 40.2 fL (35.1-46.3); Red Blood Cell Count 5.75 M/mm3 (4.30-5.90); White Blood Cell Count 7.98 K/mm3 (4.00-11.30)
[2022-03-27 05:02] LABS: Albumin, Blood 3.6 g/dL (3.4-5.0); Albumin/Globulin Ratio 1.1 (0.8-1.8); Bilirubin, Total 0.2 mg/dL (0.1-1.0); Bun/Creatinine Ratio 15.6 (12.0-20.0); Calcium, Blood 8.7 mg/dL (8.5-10.1); Creatinine, Blood 0.77 mg/dL (0.60-1.20); Globulin, Blood 3.4 g/dL (2.2-4.0); Potassium, Blood 3.7 mmol/L (3.5-5.5)
[2022-03-27] MEDS ORDERED: AZIT250 PO (06:48)
== END 2022-03-27 07:26 | disposition home or self-care (01) ==
LOC: ER 23:14
PROVIDERS: Student in an Organized Health Care Education/Training Program
DX: J44.1 Chronic obstructive pulmonary disease with (acute) exacerbation (principal); J10.1 Influenza due to other identified influenza virus with other respiratory manifestations; I10 Essential (primary) hypertension; F17.210 Nicotine dependence, cigarettes, uncomplicated; Z20.822 Contact with and (suspected) exposure to COVID-19; Z79.899 Other long term (current) drug therapy
CPT/HCPCS: 0241U; 71045; 80053; 83605; 85025; 94640; 94664; J1885

== ENCOUNTER 2022-04-18 14:23 | Emergency (ER) | payer OTHER ==
[~2022-04-18] VITALS: Ht 177.8 cm; Wt 99.8 kg
[~2022-04-18 14:23] MED LIST changes: +AZIT250 PO; +LEVFLO500 PO
[2022-04-18 17:31] LABS: BASOPHILS ABSOLUTE AUTO 0.07 K/mm3 (0.00-0.23); BASOPHILS PERCENT AUTO 1 % (0-2); EOSINOPHILS ABSOLUTE AUTO 0.45 K/mm3 (0.00-0.68); EOSINOPHILS PERCENT AUTO 4 % (0-6); Hematocrit 49.1 % (37.0-53.0); Hemoglobin 16.5 g/dL (13.5-17.5); IMMATURE GRAN ABSOLUTE AUTO 0.04 K/mm3 (0.00-0.10); IMMATURE GRAN PERCENT AUTO 0 % (0-1); LYMPHOCYTES ABSOLUTE AUTO 1.58 K/mm3 (0.84-5.20); LYMPHOCYTES PERCENT AUTO 14 % (21-46); MONOCYTES ABSOLUTE AUTO 1.07 K/mm3 (0.16-1.47); MONOCYTES PERCENT AUTO 10 % (4-13); Mean Corpuscular HGB 30.3 pg (26.0-34.0); Mean Corpuscular HGB Conc 33.6 g/dL (31.5-36.5); Mean Corpuscular Volume 90 fL (80-100); Mean Platelet Volume 9.1 fL (9.1-12.4); NEUTROPHILS ABSOLUTE AUTO 7.77 K/mm3 (1.96-9.15); NEUTROPHILS PERCENT AUTO 71 % (41-73); Platelet Count 229 K/mm3 (150-400); RDW Coefficient Variation 12.8 % (11.7-14.2); RDW Standard Deviation 41.8 fL (35.1-46.3); Red Blood Cell Count 5.45 M/mm3 (4.30-5.90); White Blood Cell Count 10.98 K/mm3 (4.00-11.30)
[2022-04-18 17:40] LABS: Bun/Creatinine Ratio 17.6 (12.0-20.0); Creatinine, Blood 0.74 mg/dL (0.60-1.20); Potassium, Blood 4.1 mmol/L (3.5-5.5)
[2022-04-18] MEDS ORDERED: HYDR1TAB94 PO (19:26)
== END 2022-04-18 19:27 | disposition home or self-care (01) ==
LOC: ER 14:23
PROVIDERS: Physician Assistant
DX: N50.82 Scrotal pain (principal); I10 Essential (primary) hypertension; J44.9 Chronic obstructive pulmonary disease, unspecified; F17.210 Nicotine dependence, cigarettes, uncomplicated; Z88.5 Allergy status to narcotic agent; Z79.899 Other long term (current) drug therapy
CPT/HCPCS: 36415; 76870; 80048; 83605; 85025; 96374; 99284-25; J1885

== ENCOUNTER → 2022-04-20 | Outpatient (CLI) | payer OTHER ==
[~2022-04-20] MED LIST changes: +HYDR1TAB94 PO
[2022-04-23 00:07] LABS: CHLAMYDIA TRACHOMATIS, NAA Negative (Negative)
== END | disposition home or self-care (01) ==
LOC: LAB SHORT 15:53
PROVIDERS: Family Medicine
DX: N50.82 Scrotal pain (principal)
CPT/HCPCS: 87086; 87491; 87591

== ENCOUNTER 2022-06-03 21:47 | Emergency (ER) | payer OTHER ==
[~2022-06-03] VITALS: Ht 177.8 cm; Wt 97.5 kg
[2022-06-03] MEDS ORDERED: Amlodipine Bes2.5 MG (22:15)
[2022-06-03] MEDS ORDERED: Lisinopril2.5 MG (22:16)
[2022-06-03] MEDS ORDERED: HYDROXYZINE PAM25 MG (22:16)
[2022-06-03] MEDS ORDERED: DOXY100 (22:16)
[2022-06-03 23:49] LABS: Source, Urine Clean Catch
[2022-06-03 23:55] LABS: Bilirubin, Urine Neg (Neg); Blood, Urine 1+ (Neg); Glucose Qualitative, Urine Neg (Neg); Ketones, Urine Neg (Neg); Leukocyte Esterase, Urine Neg (Neg); Nitrite, Urine Neg (Neg); Protein, Urine Neg (Neg); Specific Gravity, Urine 1.025 (1.003-1.022); Urobilinogen, Urine NORM (Normal)
[2022-06-04 00:02] LABS: BASOPHILS ABSOLUTE AUTO 0.14 K/mm3 (0.00-0.23); BASOPHILS PERCENT AUTO 1 % (0-2); EOSINOPHILS ABSOLUTE AUTO 0.56 K/mm3 (0.00-0.68); EOSINOPHILS PERCENT AUTO 4 % (0-6); Hematocrit 49.4 % (37.0-53.0); Hemoglobin 16.9 g/dL (13.5-17.5); IMMATURE GRAN ABSOLUTE AUTO 0.12 K/mm3 (0.00-0.10); IMMATURE GRAN PERCENT AUTO 1 % (0-1); LYMPHOCYTES ABSOLUTE AUTO 2.82 K/mm3 (0.84-5.20); LYMPHOCYTES PERCENT AUTO 20 % (21-46); MONOCYTES ABSOLUTE AUTO 1.01 K/mm3 (0.16-1.47); MONOCYTES PERCENT AUTO 7 % (4-13); Mean Corpuscular HGB 30.2 pg (26.0-34.0); Mean Corpuscular HGB Conc 34.2 g/dL (31.5-36.5); Mean Corpuscular Volume 88 fL (80-100); NEUTROPHILS ABSOLUTE AUTO 9.47 K/mm3 (1.96-9.15); NEUTROPHILS PERCENT AUTO 67 % (41-73); RDW Standard Deviation 42.2 fL (35.1-46.3); White Blood Cell Count 14.12 K/mm3 (4.00-11.30)
[2022-06-04 00:15] LABS: Mean Platelet Volume 9.4 fL (9.1-12.4)
[2022-06-04 00:17] LABS: Appearance, Urine Clear (Clear); Color, Urine Yellow (P-Yellow)
[2022-06-04 00:18] LABS: Bacteria Rare /hpf; Squamous Epithelial Cells Rare /hpf (Few); White Blood Cells, Urine 0-2 /hpf (0-5)
[2022-06-04 00:49] LABS: Albumin, Blood 3.9 g/dL (3.4-5.0); Albumin/Globulin Ratio 1.1 (0.8-1.8); Bilirubin, Total 0.4 mg/dL (0.1-1.0); Calcium, Blood 9.3 mg/dL (8.5-10.1); Creatinine, Blood 0.7 mg/dL (0.60-1.20); Globulin, Blood 3.6 g/dL (2.2-4.0); Potassium, Blood 4.9 mmol/L (3.5-5.5); Total Protein, Blood 7.5 g/dL (6.4-8.2)
[2022-06-04 01:04] LABS: Platelet Count 292 K/mm3 (150-400)
== END 2022-06-04 01:36 | disposition home or self-care (01) ==
LOC: ER 21:47
PROVIDERS: Student in an Organized Health Care Education/Training Program
DX: N50.812 Left testicular pain (principal); N50.811 Right testicular pain; I10 Essential (primary) hypertension; J44.9 Chronic obstructive pulmonary disease, unspecified; F17.210 Nicotine dependence, cigarettes, uncomplicated; Z88.5 Allergy status to narcotic agent; Z79.899 Other long term (current) drug therapy
CPT/HCPCS: 80053; 81001; 83605; 85025; 96374; 96375; 99284-25; A9270; J1885; J3010

== ENCOUNTER 2023-03-09 13:01 | Emergency (ER) | payer OTHER ==
[~2023-03-09] VITALS: Ht 177.8 cm; Wt 96.2 kg
[~2023-03-09 13:01] MED LIST changes: +Amlodipine Bes2.5 MG; +DOXY100; +HYDROXYZINE PAM25 MG; +Lisinopril2.5 MG
[2023-03-09 15:11] LABS: BASOPHILS ABSOLUTE AUTO 0.07 K/mm3 (0.00-0.23); BASOPHILS PERCENT AUTO 1 % (0-2); EOSINOPHILS ABSOLUTE AUTO 0.22 K/mm3 (0.00-0.68); EOSINOPHILS PERCENT AUTO 2 % (0-6); Hematocrit 47.5 % (37.0-53.0); Hemoglobin 15.9 g/dL (13.5-17.5); IMMATURE GRAN ABSOLUTE AUTO 0.07 K/mm3 (0.00-0.10); IMMATURE GRAN PERCENT AUTO 1 % (0-1); LYMPHOCYTES ABSOLUTE AUTO 2.18 K/mm3 (0.84-5.20); LYMPHOCYTES PERCENT AUTO 17 % (21-46); MONOCYTES ABSOLUTE AUTO 0.76 K/mm3 (0.16-1.47); MONOCYTES PERCENT AUTO 6 % (4-13); Mean Corpuscular HGB Conc 33.5 g/dL (31.5-36.5); Mean Corpuscular Volume 93 fL (80-100); Mean Platelet Volume 9.5 fL (9.1-12.4); NEUTROPHILS ABSOLUTE AUTO 9.76 K/mm3 (1.96-9.15); NEUTROPHILS PERCENT AUTO 75 % (41-73); Platelet Count 263 K/mm3 (150-400); RDW Coefficient Variation 12.9 % (11.7-14.2); RDW Standard Deviation 44.3 fL (35.1-46.3); Red Blood Cell Count 5.13 M/mm3 (4.30-5.90); White Blood Cell Count 13.06 K/mm3 (4.00-11.30)
[2023-03-09 15:39] LABS: Albumin, Blood 4.1 g/dL (3.4-5.0); Albumin/Globulin Ratio 1.3 (0.8-1.8); Bilirubin, Total 0.6 mg/dL (0.1-1.0); Bun/Creatinine Ratio 16.1 (12.0-20.0); Calcium, Blood 9.3 mg/dL (8.5-10.1); Creatinine, Blood 0.68 mg/dL (0.60-1.20); Globulin, Blood 3.2 g/dL (2.2-4.0); Potassium, Blood 3.9 mmol/L (3.5-5.5); Total Protein, Blood 7.3 g/dL (6.4-8.2)
[2023-03-09 15:43] VITALS: BP 162/111
== END 2023-03-09 17:00 | disposition home or self-care (01) ==
LOC: ER 13:01
PROVIDERS: Emergency Medicine
DX: M54.2 Cervicalgia (principal); R51.9 Headache, unspecified; Z88.5 Allergy status to narcotic agent; Z79.899 Other long term (current) drug therapy; J45.909 Unspecified asthma, uncomplicated; I10 Essential (primary) hypertension; J44.9 Chronic obstructive pulmonary disease, unspecified; F17.210 Nicotine dependence, cigarettes, uncomplicated
CPT/HCPCS: 80053; 85025; 94640; 94664; 96361; 96374; 96375; 99283-25; A9270; J0780; J1200; J1885; J7030

== ENCOUNTER 2023-10-14 22:27 | Emergency (ER) | payer OTHER ==
[~2023-10-14] VITALS: Ht 177.8 cm; Wt 96.2 kg
[2023-10-14] MEDS ORDERED: Dexamethasone Sod Phos 10 MG/ML 1ML VIAL IV ONE (22:45)
[2023-10-14] MEDS ORDERED: Famotidine 10 MG/ML 2ML Vial IV ONE (22:55)
[2023-10-14] MEDS ORDERED: DiphenhydrAMINE HCl 50 MG/ML 1ML Vial IV ONE (22:55)
[2023-10-14 23:02] LABS: BASOPHILS ABSOLUTE AUTO 0.13 K/mm3 (0.00-0.23); BASOPHILS PERCENT AUTO 1 % (0-2); EOSINOPHILS ABSOLUTE AUTO 0.44 K/mm3 (0.00-0.68); EOSINOPHILS PERCENT AUTO 2 % (0-6); Hematocrit 43.9 % (37.0-53.0); Hemoglobin 14.6 g/dL (13.5-17.5); IMMATURE GRAN ABSOLUTE AUTO 0.09 K/mm3 (0.00-0.10); IMMATURE GRAN PERCENT AUTO 1 % (0-1); LYMPHOCYTES ABSOLUTE AUTO 2.18 K/mm3 (0.84-5.20); LYMPHOCYTES PERCENT AUTO 11 % (21-46); MONOCYTES ABSOLUTE AUTO 1.35 K/mm3 (0.16-1.47); MONOCYTES PERCENT AUTO 7 % (4-13); Mean Corpuscular HGB 30.2 pg (26.0-34.0); Mean Corpuscular HGB Conc 33.3 g/dL (31.5-36.5); Mean Corpuscular Volume 91 fL (80-100); NEUTROPHILS ABSOLUTE AUTO 15.14 K/mm3 (1.96-9.15); NEUTROPHILS PERCENT AUTO 78 % (41-73); Platelet Count 293 K/mm3 (150-400); RDW Coefficient Variation 12.2 % (11.7-14.2); RDW Standard Deviation 40.8 fL (35.1-46.3); Red Blood Cell Count 4.84 M/mm3 (4.30-5.90); White Blood Cell Count 19.33 K/mm3 (4.00-11.30)
[2023-10-14 23:27] LABS: Albumin, Blood 3.8 g/dL (3.4-5.0); Albumin/Globulin Ratio 1.2 (0.8-1.8); Bilirubin, Total 0.3 mg/dL (0.1-1.0); Bun/Creatinine Ratio 19.7 (12.0-20.0); Calcium, Blood 8.8 mg/dL (8.5-10.1); Creatinine, Blood 0.71 mg/dL (0.60-1.20); Globulin, Blood 3.2 g/dL (2.2-4.0); Potassium, Blood 3.9 mmol/L (3.5-5.5)
[2023-10-14] MEDS ORDERED: OMEP20ER PO (23:35)
[2023-10-14] MEDS ORDERED: CARBAMAZEPINE100 M6 PO (23:36)
[2023-10-14] MEDS ORDERED: ZOLOFT50 MG PO (23:36)
[2023-10-14] MEDS ORDERED: MONT10T PO (23:36)
[2023-10-14] MEDS ORDERED: BUDESONIDE-FO10.2 G2 (23:37)
[2023-10-15] MEDS ORDERED: DECADRON6 M1 PO ×3 (02:28→11:09)
[2023-10-15] MEDS ORDERED: BANOPHEN25 MG PO ×2 (02:28→10:56)
[2023-10-15 02:45] VITALS: BP 129/94
== END 2023-10-15 02:45 | disposition home or self-care (01) ==
LOC: ER 22:27
PROVIDERS: Emergency Medicine
DX: T78.3XXA Angioneurotic edema, initial encounter (principal); Z88.5 Allergy status to narcotic agent; Z79.899 Other long term (current) drug therapy; J44.9 Chronic obstructive pulmonary disease, unspecified; I10 Essential (primary) hypertension; F17.210 Nicotine dependence, cigarettes, uncomplicated
CPT/HCPCS: 70360; 80053; 85025; 96374; 96375; 99285-25; J1100; J1200

== ENCOUNTER 2024-12-12 08:50 | Emergency (ER) | payer OTHER ==
[~2024-12-12] VITALS: Ht 177.8 cm; Wt 88.5 kg
[~2024-12-12 08:50] MED LIST changes: +BANOPHEN25 MG PO; +BUDESONIDE-FO10.2 G2; +CARBAMAZEPINE100 M6 PO; +DECADRON6 M1 PO; +MONT10T PO; +OMEP20ER PO; +ZOLOFT50 MG PO
[2024-12-12 09:18] VITALS: BP 159/112
[2024-12-12] MEDS ORDERED: HYDPAM25 PO (10:39)
[2024-12-12] MEDS ORDERED: CORTISONE60 GM TOP (10:39)
== END 2024-12-12 10:43 | disposition home or self-care (01) ==
LOC: ER 08:50
DX: B65.3 Cercarial dermatitis (principal); I10 Essential (primary) hypertension; J44.9 Chronic obstructive pulmonary disease, unspecified; Z88.5 Allergy status to narcotic agent; F17.210 Nicotine dependence, cigarettes, uncomplicated; Z59.89 Other problems related to housing and economic circumstances; Z79.899 Other long term (current) drug therapy
CPT/HCPCS: 99282

== ENCOUNTER 2025-04-17 06:45 | Day surgery (SDC) | payer OTHER ==
[~2025-04-17] VITALS: Ht 177.8 cm; Wt 90.9 kg
[~2025-04-17 06:45] MED LIST changes: +CORTISONE60 GM TOP; +HYDPAM25 PO
[2025-04-17] MEDS ORDERED: LOSARTAN POTASS25 M2 (07:10)
[2025-04-17 10:03] VITALS: BP 130/82
== END 2025-04-17 09:59 | disposition home or self-care (01) ==
LOC: ORSCSDS 06:45
PROVIDERS: Internal Medicine Gastroenterology
PROC: 0D757ZZ Dilation of Esophagus, Via Natural or Artificial Opening (ICD-10-PCS; principal; 2025-04-17 08:15)
PROC: 0DBN8ZX Excision of Sigmoid Colon, Via Natural or Artificial Opening Endoscopic, Diagnostic (ICD-10-PCS; principal; 2025-04-17 08:15)
PROC: 0DBL8ZX Excision of Transverse Colon, Via Natural or Artificial Opening Endoscopic, Diagnostic (ICD-10-PCS; principal; 2025-04-17 08:15)
PROC: 0DB78ZX Excision of Stomach, Pylorus, Via Natural or Artificial Opening Endoscopic, Diagnostic (ICD-10-PCS; principal; 2025-04-17 08:15)
PROC: 0DB58ZX Excision of Esophagus, Via Natural or Artificial Opening Endoscopic, Diagnostic (ICD-10-PCS; principal; 2025-04-17 08:15)
DX: R13.10 Dysphagia, unspecified (principal); K21.9 Gastro-esophageal reflux disease without esophagitis; Z12.11 Encounter for screening for malignant neoplasm of colon; Z86.0101 Personal history of adenomatous and serrated colon polyps; K57.30 Diverticulosis of large intestine without perforation or abscess without bleeding; R23.4 Changes in skin texture; D12.3 Benign neoplasm of transverse colon; D12.5 Benign neoplasm of sigmoid colon; Z90.49 Acquired absence of other specified parts of digestive tract; K64.4 Residual hemorrhoidal skin tags; F17.210 Nicotine dependence, cigarettes, uncomplicated; J44.89 Other specified chronic obstructive pulmonary disease; I10 Essential (primary) hypertension; G47.33 Obstructive sleep apnea (adult) (pediatric); Z79.899 Other long term (current) drug therapy
CPT/HCPCS: 88305; 88312; 88341; 88342; J2704; J7120